=== PATIENT | female | born 1945 | race Caucasian/White ===

== ENCOUNTER 2018-09-07 11:01 | Outpatient (CLI) | payer MEDICARE ==
--- NOTE | 2018-09-07 12:34 | RAD ---
PA AND LATERAL VIEWS CHEST: HISTORY: Pneumonia. FINDINGS: The heart size is normal. The aorta is tortuous. The lungs are expanded without focal areas of conso lidation, pneumothoraces, or pleural effusions. There are old fractures in the right rib cage. Dege nerative changes are present in the spine. IMPRESSION: No radiographic evidence of acute cardiopulmonary process. POS: OFF
== END 2018-09-07 11:02 | disposition home or self-care (01) ==
LOC: BICRAD 11:01
PROVIDERS: ATTEND Family Medicine
DX: J18.9 Pneumonia, unspecified organism (principal)
CPT/HCPCS: 71046